=== PATIENT | male | born 1990 | race Caucasian/White ===

== ENCOUNTER 2018-11-04 19:05 | Emergency (ER) | payer SELFPAY, OTHER | END 2018-11-04 21:27 | disposition left against medical advice (07) | LOC: FTE 21:27 | DX: Z53.21 Procedure and treatment not carried out due to patient leaving prior to being seen by health care provider (principal) ==

== ENCOUNTER 2018-11-06 19:37 | Emergency (ER) | payer OTHER ==
[2018-11-06] MEDS: KETOROLAC 30 MG INJ IM (21:52)
== END 2018-11-07 00:27 | disposition home or self-care (01) ==
LOC: FTE 11-07 00:27
DX: R07.81 Pleurodynia (principal); F17.210 Nicotine dependence, cigarettes, uncomplicated
CPT/HCPCS: 71046; 96372; 99284-25

== ENCOUNTER 2018-11-08 09:11 | Emergency (ER) | payer OTHER ==
[2018-11-08] MEDS: ONDANSETRON 4 MG INJ IV (11:28)
[2018-11-08] MEDS: HYDROmorphONE 1 MG/ML SYG IV (11:28)
[2018-11-08 11:49] LABS: ANION GAP 6 (5-13); BLOOD UREA NITROGEN 9 mg/dl (7-20); CALCIUM 8.9 mg/dl (8.4-10.2); CARBON DIOXIDE 29 mmol/L (21-31); CHLORIDE 104 mmol/L (97-110); CREATININE 0.59 mg/dl (0.61-1.24); Estimated GFR > 60 mL/min (>60); GLUCOSE 107 mg/dl (70-220); POTASSIUM 4.5 mmol/L (3.5-5.1); SODIUM 139 mmol/L (135-144)
[2018-11-08] MEDS: IOHEXOL 300MG/ML 150 ML BTL (12:10)
[2018-11-08] MEDS: SOD CHLORIDE 0.9% 100 ML (12:10)
[2018-11-08 13:10] LABS: ADD MAN DIFF? NO
[2018-11-08 13:11] LABS: BASOPHILS % 0.4 % (0.0-2.0); EOSINOPHILS # 0.1 10^3/ul (0.0-0.5); EOSINOPHILS % 0.6 % (0.0-7.0); HEMATOCRIT 41.9 % (42.0-52.0); HEMOGLOBIN 13.4 g/dl (14.0-18.0); LYMPHOCYTES # 1.1 10^3/ul (0.8-2.9); LYMPHOCYTES % 11.8 % (15.0-51.0); MEAN CORPUSCULAR HEMOGLOBIN 29.4 pg (29.0-33.0); MEAN CORPUSCULAR VOLUME 91.9 fl (82.0-101.0); MONOCYTE # 1.1 10^3/ul (0.3-0.9); MONOCYTES % 11.8 % (0.0-11.0); NEUTROPHIL # 7.1 10^3/ul (1.6-7.5); NEUTROPHILS % 75.1 % (39.0-77.0); PLATELET COUNT 293 10^3/UL (140-415); RED BLOOD COUNT 4.56 10^6/ul (4.70-6.10); RED CELL DISTRIBUTION WIDTH 12.9 % (11.5-14.5)
[2018-11-08 13:11] LABS: WHITE BLOOD COUNT 9.4 10^3/ul (4.8-10.8)
[2018-11-08] MEDS: KETOROLAC 30 MG INJ IV (13:12)
[2018-11-08] MEDS: SOD CHLORIDE 0.9% 1,000 ML IV (13:12)
[2018-11-08] MEDS: LORAZEPAM 2 MG INJ IV (13:12)
[2018-11-08] MEDS: CEFTRIAXONE 1 GM/50 ML (PMX) 50 ML IVPB (14:04)
== END 2018-11-08 14:46 | disposition home or self-care (01) ==
LOC: E/R 09:11
DX: S22.32XA Fracture of one rib, left side, initial encounter for closed fracture (principal); R50.9 Fever, unspecified; F17.210 Nicotine dependence, cigarettes, uncomplicated; X58.XXXA Exposure to other specified factors, initial encounter; Y92.9 Unspecified place or not applicable
CPT/HCPCS: 36415; 71260; 80048; 85025; 87400; 96374; 96375; 99285-25